=== PATIENT | female | born 1995 | race Caucasian/White ===

== ENCOUNTER 2019-12-15 10:03 | Outpatient (CLI) | payer OTHER ==
--- NOTE | 2019-12-15 11:44 | RAD ---
LEFT LEG 2 VIEWS: HISTORY: Left leg pain FINDINGS: No bony abnormality seen. The left tibia and fibula appear intact.
--- NOTE | 2019-12-15 11:44 | RAD ---
RIGHT LEG 2 VIEWS: HISTORY: Right leg pain FINDINGS: No bony abnormality seen. The right tibia and fibula appear intact.
== END 2019-12-15 10:04 | disposition home or self-care (01) ==
LOC: BICRAD 10:03
PROVIDERS: ATTEND Orthopaedic Surgery
DX: M84.40XA Pathological fracture, unspecified site, initial encounter for fracture (principal)